=== PATIENT | male | born 1970 | race American Indian/Alaskan Native ===

== ENCOUNTER 2017-10-20 17:41 | Emergency (ER) | payer MEDICAID ==
[~2017-10-20 17:41] MED LIST: HYDR-2561 PO; KEN0.1O TP; PERM60CR19 TP; PRED20TA PO
== END 2017-10-20 19:00 | disposition left against medical advice (07) ==
LOC: ER 17:42
DX: R51 Headache (principal); Z53.21 Procedure and treatment not carried out due to patient leaving prior to being seen by health care provider

== ENCOUNTER 2017-12-22 17:49 | Emergency (ER) | payer MEDICAID ==
[~2017-12-22] VITALS: Ht 167.6 cm; Wt 55.0 kg
[2017-12-22 18:09] VITALS: BP 120/76
[2017-12-22] MEDS ORDERED: ondansetron 4mg rapidly disintigrating tab PO ONE (18:35)
[2017-12-22] MEDS ORDERED: doxycycline hyclate 100mg tablet.DR PO ONE (18:35)
[2017-12-22] MEDS ORDERED: CefTRIAXone 1000mg IM Kit (w/lidocaine diluent) IM ONE (18:35)
[2017-12-22] MEDS ORDERED: HYDROcodone/acetaminophen 5mg/325mg tablet PO ONE (18:35)
[2017-12-22] MEDS ORDERED: CEPH250T PO (18:38)
[2017-12-22] MEDS ORDERED: DOXY-200 PO (18:38)
[2017-12-22] MEDS ORDERED: ONDA8TAB9 PO (18:38)
[2017-12-22] MEDS ORDERED: HYDR-3965 PO (18:38)
== END 2017-12-22 19:05 | disposition home or self-care (01) ==
LOC: ER 17:50
DX: L03.011 Cellulitis of right finger (principal); G89.29 Other chronic pain; F12.10 Cannabis abuse, uncomplicated; Z56.0 Unemployment, unspecified; Z79.899 Other long term (current) drug therapy
CPT/HCPCS: 96372; 99284; J0696

== ENCOUNTER 2022-03-02 19:49 | Emergency (ER) | payer MEDICAID ==
[~2022-03-02] VITALS: Ht 167.6 cm; Wt 63.6 kg
[~2022-03-02 19:49] MED LIST changes: +ONDA8TAB9 PO
--- NOTE | 2022-03-02 20:37 | NUR ---
PT NON VERBAL. CAN ANSWER YES OR NO QUESTIONS. POOR HISTORIAN
[2022-03-02] MEDS ORDERED: ketorolac trometh inj. 60 MG/2 ML VIAL IM ONE (20:40)
[2022-03-02 20:43] VITALS: BP 129/96
== END 2022-03-02 21:39 | disposition home or self-care (01) ==
LOC: ER 19:50
DX: M25.561 Pain in right knee (principal); G89.29 Other chronic pain; F12.90 Cannabis use, unspecified, uncomplicated; Z79.899 Other long term (current) drug therapy
CPT/HCPCS: 73564; 96372; 99283; J1885

== ENCOUNTER 2024-07-17 21:44 | Emergency (ER) | payer MEDICAID ==
[~2024-07-17] VITALS: Ht 157.5 cm; Wt 54.5 kg
[2024-07-17 21:45] VITALS: BP 128/81; PULSE 70; RESP 16; TEMP 98; O2SAT 97
[2024-07-17] MEDS ORDERED: tetanus & diphtheria toxoid (Td) vaccine 0.5ml IMVAC ONE (21:55)
[2024-07-17] MEDS: TETanus/Pertussis (Acell)/Diphther VAC/PF (Tdap-Adult) 0.5ml syringe IMVAC ONE (22:16)
== END 2024-07-17 22:29 | disposition home or self-care (01) ==
LOC: ER 21:45
DX: S01.81XA Laceration without foreign body of other part of head, initial encounter (principal); Z88.8 Allergy status to other drugs, medicaments and biological substances; Z59.00 Homelessness unspecified; Z65.3 Problems related to other legal circumstances; X58.XXXA Exposure to other specified factors, initial encounter; Y93.89 Activity, other specified; Y92.89 Other specified places as the place of occurrence of the external cause; Y99.8 Other external cause status
CPT/HCPCS: 12011; 90471; 90715; 99283; A6449